=== PATIENT | male | born 1950 | race Caucasian/White ===

== ENCOUNTER → 2017-03-03 | Outpatient (CLI) | payer MEDICARE, OTHER ==
[~2017-03-03] MED LIST: CEFTIN250 M1 PO; CRESTOR 10MG10 MG PO; METOPROLOL1 MG/ML IV; MICARDIS80 MG PO
== END | disposition home or self-care (01) ==
LOC: COL.CARD 08:30
DX: I49.9 Cardiac arrhythmia, unspecified (principal)

== ENCOUNTER → 2017-03-20 | Outpatient (CLI) | payer MEDICARE, OTHER | LOC: COL.CARD 08:48 | DX: R00.1 Bradycardia, unspecified (principal); I10 Essential (primary) hypertension ==

== ENCOUNTER 2019-01-24 18:07 | Emergency (ER) | payer MEDICARE, OTHER ==
[~2019-01-24] VITALS: Ht 185.4 cm; Wt 93.2 kg
[2019-01-24 18:18] VITALS: TEMP 97.3
[2019-01-24 19:20] LABS: BASO # 0.1 (0.0-0.2); BASO % 0.8 % (0.0-2.0); EOS % 31.1 % (0-4.0); GRAN # 2.3 (1.4-6.5); GRAN % 37.1 % (42.2-75.2); LYMPH # 1.5 (1.2-3.4); LYMPH % 24.1 % (20.0-51.0); MEAN CELL VOLUME 95 fl (80.0-100.0); MEAN CORPUSCULAR HEMOGLOBIN 32 pg (27.0-31.0); MEAN CORPUSCULAR HGB CONC 33 g/dl (33.0-37.0); MEAN PLATELET VOLUME 11.2 fl (7.4-10.4); MONO # 0.4 (0.1-0.6); MONO % 6.7 % (1.7-9.3); PLATELET COUNT 164 K/mm3 (130-400); REDCELL DISTRIBUTION WIDTH-CV 11.9 % (11.5-14.5)
[2019-01-24 19:33] LABS: ALBUMIN 3.8 gm/dL (3.5-5.0); BILIRUBIN,TOTAL 0.4 mg/dL (0.0-1.0); C-REACTIVE PROTEIN 1.6 mg/dL (0.0-0.9); CALCIUM 8.8 mg/dL (8.4-10.2); CREATININE, serum 0.72 (0.66-1.25); TOTAL PROTEIN 7.3 gm/dL (6.4-8.2)
[2019-01-24 20:25] LABS: ERYTHROCYTE SEDIMENTATION RATE 12 mm/hr (0-30)
[2019-01-24 20:53] LABS: BASOPHIL 4 % (0-2); EOSINOPHIL 26 % (0-4); LYMPHOCYTE 22 % (20.0-51.0); NEUTROPHILS 39 % (42.0-75.2); PLATELET ESTIMATE NORMAL (NORMAL)
[2019-01-24] MEDS ORDERED: EPIPEN 2-PAK1 MG/ML IM (21:54)
[2019-01-24] MEDS ORDERED: DOXYCYCLINE HY100 MG PO (21:58)
[2019-01-24 22:24] VITALS: BP 149/91; PULSE 87
== END 2019-01-24 22:24 | disposition home or self-care (01) ==
LOC: COL.ER 18:07
PROVIDERS: Physician Assistant
DX: T36.1X5A Adverse effect of cephalosporins and other beta-lactam antibiotics, initial encounter (principal); T78.3XXA Angioneurotic edema, initial encounter; D72.1 Eosinophilia
CPT/HCPCS: J0171; J1200; J2930; J7030

== ENCOUNTER → 2020-08-21 | Outpatient (CLI) | payer MEDICARE, OTHER ==
[~2020-08-21] MED LIST changes: +DOXYCYCLINE HY100 MG PO; +EPIPEN 2-PAK1 MG/ML IM
== END ==
LOC: COL.RAD 07:40
DX: R63.4 Abnormal weight loss (principal); R91.8 Other nonspecific abnormal finding of lung field; R59.0 Localized enlarged lymph nodes
CPT/HCPCS: Q9967

== ENCOUNTER → 2021-12-06 | Outpatient (CLI) | payer MEDICARE, OTHER | LOC: COL.RAD 07:44 | DX: R94.5 Abnormal results of liver function studies (principal) ==